=== PATIENT | male | born 1980 | race Two or more races ===

== ENCOUNTER 2019-07-27 03:52 | Emergency (ER) | payer OTHER ==
[~2019-07-27] VITALS: Ht 180.3 cm; Wt 99.8 kg
--- NOTE | 2019-07-27 04:10 | NUR ---
PT CAME TO ER BED 9 C/O PRODUCTIVE COUGH 4X DAYS. PT STATES THAT HE DID NOT TAKE MEDICATIONS PRIOR TO ARRIVAL. PT STATES HE HAS PAIN UPON COUGHING. C/O GENERALIZED BODY PAIN. AAOX4. NO SOB. BREATHING EVENLY AND UNLABORED ON ROOM AIR. AWAITING MD KWON.
--- NOTE | 2019-07-27 04:25 | NUR ---
XRAY AT BEDSIDE
--- NOTE | 2019-07-27 04:27 | NUR ---
FLU SWAB SAMPLE SENT TO LAB
[2019-07-27] MEDS ORDERED: ALBUTEROL FS 2.5 MG/0.5 ML VIAL.NEB NEB ONE (04:30)
--- NOTE | 2019-07-27 04:30 | NUR ---
RT AT BEDSIDE FOR BREATHING TREATMENT
[2019-07-27] MEDS ORDERED: ALBUTEROL FS 2.5 MG/0.5 ML VIAL.NEB ONE (04:33)
--- NOTE | 2019-07-27 05:16 | NUR ---
Patient discharged to home in stable condition. Written and verbal after care instructions given. Patient verbalizes understanding of instruction.
[2019-07-27 05:17] VITALS: BP 121/77
== END 2019-07-27 05:18 | disposition home or self-care (01) ==
LOC: ER 03:54
DX: J10.1 Influenza due to other identified influenza virus with other respiratory manifestations (principal); Z71.6 Tobacco abuse counseling; Z85.850 Personal history of malignant neoplasm of thyroid; Z98.890 Other specified postprocedural states; Z60.2 Problems related to living alone; F17.200 Nicotine dependence, unspecified, uncomplicated
CPT/HCPCS: 71045-TC

== ENCOUNTER 2021-03-30 18:57 | Emergency (ER) | payer OTHER ==
[~2021-03-30] VITALS: Ht 177.8 cm; Wt 76.2 kg
--- NOTE | 2021-03-30 19:00 | NUR ---
PT [email or web address], from home, c/o cough, fatigue, chills x 1 week, 98% on room air, PT A/OX4.
[2021-03-30] MEDS ORDERED: AZIT250T13 PO (19:38)
--- NOTE | 2021-03-30 19:40 | NUR ---
CALLED STAT LAB FOR COVID SWAB
--- NOTE | 2021-03-30 20:15 | NUR ---
COVID SWAB COLLECTED AND SENT TO LAB
[2021-03-30] MEDS ORDERED: GUAIFENESIN/CODEINE 10 ML UDC ONE (20:19)
[2021-03-30] MEDS ORDERED: GUAIFENESIN/CODEINE 10 ML UDC PO PRN (20:30)
--- NOTE | 2021-03-30 20:30 | NUR ---
Patient discharged to home in stable condition. RX Written and verbal after care instructions given. Patient verbalizes understanding of instruction. PT ambulatory with a steady gait
[2021-03-30 21:49] VITALS: BP 125/77
== END 2021-03-30 20:30 | disposition home or self-care (01) ==
LOC: ER 19:01
DX: J20.9 Acute bronchitis, unspecified (principal); Z20.822 Contact with and (suspected) exposure to COVID-19; F31.9 Bipolar disorder, unspecified; Z85.850 Personal history of malignant neoplasm of thyroid
CPT/HCPCS: 87426; 99283; C9803

== ENCOUNTER 2023-04-11 20:25 | Emergency (ER) | payer OTHER ==
[~2023-04-11] VITALS: Ht 180.3 cm; Wt 81.6 kg
[~2023-04-11 20:25] MED LIST: AZIT250T13 PO
[2023-04-11] MEDS ORDERED: ASPIRIN 81 MG TAB.CHEW ONE (21:27)
[2023-04-11] MEDS: ASPIRIN 81 MG TAB.CHEW PO ONE (21:28)
[2023-04-11 21:33] LABS: BASOPHILS # (AUTO) 0.1 K/uL (0.0-0.2); BASOPHILS % (AUTO) 0.5 % (0.0-2.0); EOSINOPHILS # (AUTO) 0.2 K/uL (0.0-0.7); EOSINOPHILS % (AUTO) 1.8 % (0.0-6.0); HEMATOCRIT 45 % (39-51); HEMOGLOBIN 15.1 g/dL (13.5-17.5); LYMPHOCYTES # (AUTO) 2.4 K/uL (0.8-4.8); MEAN CORPUSCULAR HEMOGLOBIN 31 PG (26.0-33.0); MEAN CORPUSCULAR HGB CONC 33 g/dl (31.0-36.0); MEAN CORPUSCULAR VOLUME 91 fL (80-96); MONOCYTES # (AUTO) 0.8 K/uL (0.1-1.30); MONOCYTES % (AUTO) 7.9 % (2.0-12.0); NEUTROPHILS % (AUTO) 66.8 % (43.0-81.0); PLATELET COUNT (AUTO) 243 K/uL (150-450); RED BLOOD CELL COUNT(AUTO) 4.94 MIL/uL (4.5-6.0); RED CELL DISTRIBUTION WIDTH 13.3 % (11.5-15.0); WHITE BLOOD COUNT (AUTO) 10.4 K/uL (4.3-11.0)
[2023-04-11 21:43] LABS: CALCIUM, SERUM 9.3 mg/dL (8.5-10.1); CARBON DIOXIDE 25 mmol/L (21-32); CHLORIDE 103 mmol/L (98-107); CREATININE 1.2 mg/dL (0.6-1.3); GLUCOSE 82 mg/dL (74-106); POTASSIUM 3.3 mmol/L (3.5-5.1); SODIUM SERUM 137 mmol/L (136-145); UREA NITROGEN, BLOOD 8 mg/dL (7-18)
[2023-04-11 21:57] LABS: ALANINE AMINOTRANSFERASE 21 U/L (12-78); ALBUMIN 4.4 g/dL (3.4-5.0); ALKALINE PHOSPHATASE 57 U/L (46-116); ASPARTATE AMINOTRANSFERASE 15 U/L (15-37); BILIRUBIN,DIRECT 0.1 mg/dL (0.0-0.2); BILIRUBIN,TOTAL 0.4 mg/dL (0.2-1.0); NT-PRO BNP 75 pg/mL (0-125)
[2023-04-11] MEDS ORDERED: POTASSIUM CHLORIDE 20 MEQ TAB.PRT.SR PO ONE (22:27)
[2023-04-11] MEDS: POTASSIUM CHLORIDE 20 MEQ TAB.PRT.SR PO ONE (22:29)
[2023-04-12 00:27] VITALS: BP 133/90; TEMP 98.5; O2SAT 96
== END 2023-04-12 00:27 | disposition home or self-care (01) ==
LOC: ER 20:28
DX: R07.9 Chest pain, unspecified (principal); R06.02 Shortness of breath; F31.9 Bipolar disorder, unspecified; F41.9 Anxiety disorder, unspecified; F17.200 Nicotine dependence, unspecified, uncomplicated; Z60.2 Problems related to living alone
CPT/HCPCS: 36415; 71045-TC; 80048-TC; 80076-TC; 83880; 84484-TC; 85025-TC; 85378-TC

== ENCOUNTER 2023-05-20 05:59 | Emergency (ER) | payer OTHER ==
[~2023-05-20] VITALS: Ht 180.3 cm; Wt 81.6 kg
[2023-05-20 07:05] LABS: CARBON DIOXIDE 25 mmol/L (21-32); CHLORIDE 103 mmol/L (98-107); GLUCOSE 95 mg/dL (74-106); POTASSIUM 3.8 mmol/L (3.5-5.1); SODIUM SERUM 134 mmol/L (136-145); UREA NITROGEN, BLOOD 14 mg/dL (7-18)
[2023-05-20 07:07] LABS: BASOPHILS # (AUTO) 0.1 K/uL (0.0-0.2); BASOPHILS % (AUTO) 0.7 % (0.0-2.0); EOSINOPHILS # (AUTO) 0.5 K/uL (0.0-0.7); EOSINOPHILS % (AUTO) 5.5 % (0.0-6.0); HEMATOCRIT 44 % (39-51); HEMOGLOBIN 14.9 g/dL (13.5-17.5); LYMPHOCYTES # (AUTO) 2.4 K/uL (0.8-4.8); MEAN CORPUSCULAR HEMOGLOBIN 30 PG (26.0-33.0); MEAN CORPUSCULAR HGB CONC 34 g/dl (31.0-36.0); MEAN CORPUSCULAR VOLUME 89 fL (80-96); MONOCYTES # (AUTO) 0.7 K/uL (0.1-1.30); NEUTROPHILS # (AUTO) 4.6 K/uL (1.8-8.9); NEUTROPHILS % (AUTO) 55.8 % (43.0-81.0); PLATELET COUNT (AUTO) 211 K/uL (150-450); RED BLOOD CELL COUNT(AUTO) 4.95 MIL/uL (4.5-6.0); RED CELL DISTRIBUTION WIDTH 13.4 % (11.5-15.0); WHITE BLOOD COUNT (AUTO) 8.3 K/uL (4.3-11.0)
[2023-05-20 07:18] LABS: NT-PRO BNP 39 pg/mL (0-125)
[2023-05-20 08:10] LABS: ALCOHOL, BLOOD < 3 mg/dL (0-10)
[2023-05-20] MEDS ORDERED: ASPIRIN 81 MG TAB.CHEW PO ONE (09:00)
[2023-05-20] MEDS ORDERED: ASPIRIN 81 MG TAB.CHEW ONE (10:03)
[2023-05-20 11:31] VITALS: BP 124/85; TEMP 98.2; O2SAT 97
== END 2023-05-20 11:32 | disposition short-term general hospital (02) ==
LOC: ER 06:05
DX: R07.89 Other chest pain (principal); E03.9 Hypothyroidism, unspecified; F31.9 Bipolar disorder, unspecified; F41.9 Anxiety disorder, unspecified; F17.200 Nicotine dependence, unspecified, uncomplicated; Z79.899 Other long term (current) drug therapy; Z60.2 Problems related to living alone
CPT/HCPCS: 99285; 93005 ×2; 71045; 85025; 80048; 36415; 84439; 84443; 84484 ×2; 83880; 80320; J7030; G0480

== ENCOUNTER 2024-06-18 04:50 | Emergency (ER) | payer OTHER ==
[~2024-06-18] VITALS: Ht 182.9 cm; Wt 86.2 kg
[2024-06-18 05:00] VITALS: BP 140/100; TEMP 98.4; O2SAT 99
[2024-06-18] MEDS ORDERED: IBUP-1490 PO (05:25)
[2024-06-18] MEDS ORDERED: IBUPROFEN 600 MG TABLET ONE (05:29)
[2024-06-18] MEDS: IBUPROFEN 600 MG TABLET PO ONE (05:36)
== END 2024-06-18 06:50 | disposition home or self-care (01) ==
LOC: ER 04:52
DX: B34.9 Viral infection, unspecified (principal); F31.9 Bipolar disorder, unspecified; F17.200 Nicotine dependence, unspecified, uncomplicated; Z85.850 Personal history of malignant neoplasm of thyroid; Z79.899 Other long term (current) drug therapy; Z60.2 Problems related to living alone

== ENCOUNTER 2025-04-19 00:27 | Emergency (ER) | payer OTHER ==
[~2025-04-19] VITALS: Ht 175.3 cm; Wt 77.1 kg
[~2025-04-19 00:27] MED LIST changes: +IBUP-1490 PO
[2025-04-19] MEDS ORDERED: LORAZEPAM INJ 2 MG/ML VIAL ONE (01:08)
[2025-04-19] MEDS: IV NS 0.9% 1,000 ML BAG IV ONE (01:08)
[2025-04-19] MEDS: LORAZEPAM INJ 2 MG/ML VIAL IV ONE (01:08)
[2025-04-19 01:38] LABS: PLATELET COUNT (AUTO) 219 K/uL (150-450); RED BLOOD CELL COUNT(AUTO) 4.48 MIL/uL (4.5-6.0); RED CELL DISTRIBUTION WIDTH 13.5 % (11.5-15.0); WHITE BLOOD COUNT (AUTO) 7.3 K/uL (4.3-11.0)
[2025-04-19 01:46] LABS: CALCIUM, SERUM 8.7 mg/dL (8.5-10.1); CREATININE 1.2 mg/dL (0.6-1.3); SODIUM SERUM 144 mmol/L (136-145); UREA NITROGEN, BLOOD 9 mg/dL (7-18)
[2025-04-19 03:46] LABS: ASPARTATE AMINOTRANSFERASE 18 U/L (15-37); TOTAL PROTEIN, SERUM 6.9 g/dL (6.4-8.2)
[2025-04-19 04:50] VITALS: BP 150/80; TEMP 97.6; O2SAT 100
[2025-04-19 07:08] LABS: APPEARANCE,URINE CLEAR (CLEAR); BLOOD, URINE NEGATIVE Ery/uL (NEGATIVE); LEUKOCYTE ESTERASE ,URINE NEGATIVE (NEGATIVE); NITRITE, URINE NEGATIVE (NEGATIVE); UGLUCOSE NEGATIVE (NEGATIVE)
[2025-04-19 07:20] LABS: AMPHETAMINE, URINE NEGATIVE (NEGATIVE); BARBITURATE, URINE NEGATIVE (NEGATIVE); BENZODIAZEPINE, URINE NEGATIVE (NEGATIVE); CANNABINOID, URINE NEGATIVE (NEGATIVE); COCCAINE, URINE NEGATIVE (NEGATIVE); OPIATE, URINE NEGATIVE (NEGATIVE)
== END 2025-04-19 11:58 ==
LOC: ER 00:31
DX: F41.9 Anxiety disorder, unspecified (principal); F31.9 Bipolar disorder, unspecified; F60.3 Borderline personality disorder; R07.89 Other chest pain; F17.200 Nicotine dependence, unspecified, uncomplicated; F29 Unspecified psychosis not due to a substance or known physiological condition; Z60.2 Problems related to living alone; Z79.899 Other long term (current) drug therapy
CPT/HCPCS: 99285; 96374; 71045; 96361; 93005; 85025; 80048; 80076; 36415; 84484 ×2; 80143; 80307; 81003; J2060; J7030